=== PATIENT | female | born 1990 ===

== ENCOUNTER 2021-02-20 07:43 | Inpatient (IN) | payer MEDICAID ==
[2021-02-20] MEDS ORDERED: Water For Irrigation,Sterile 1,000 ML Container IRR PRN (09:41)
[2021-02-20] MEDS ORDERED: Ampicillin 2 GM in Sodium Chloride 0.9% 100 ML IV ONE (09:41)
[2021-02-20] MEDS ORDERED: Lidocaine 1% 50 ML MDV INJECT PRN (09:41)
[2021-02-20] MEDS ORDERED: Tranexamic Acid 1,000 MG in Sodium Chloride 0.9% 100 ML IV PRN (09:41)
[2021-02-20] MEDS ORDERED: Sodium Chloride 0.9% 2.5 ML Syringe FLUSH PRN (09:41)
[2021-02-20] MEDS ORDERED: Butorphanol 1 MG/ML SDV IVPUSH PRN (09:41)
[2021-02-20] MEDS ORDERED: Misoprostol 200 MCG Tab PO PRN (09:41)
[2021-02-20] MEDS ORDERED: Sodium Chloride 0.9% 10 ML Syringe FLUSH PRN (09:41)
[2021-02-20] MEDS ORDERED: Nalbuphine 10 MG/1 ML Vial IVPUSH PRN (09:41)
[2021-02-20] MEDS ORDERED: Carboprost Tromethamine 250 MCG/1 ML Amp IM PRN (09:41)
[2021-02-20] MEDS ORDERED: Sodium Chloride 0.9% 10 ML SDV IV PRN (09:41)
[2021-02-20] MEDS ORDERED: Methylergonovine 0.2 MG/1 ML Amp IM PRN (09:41)
[2021-02-20] MEDS ORDERED: Oxytocin/0.9 % Sodium Chloride 30 UNIT/500 ML BAG IV SCH ×2 (09:45→13:30)
[2021-02-20] MEDS ORDERED: Sodium Chloride 0.9% 100 ML ONE (10:09)
[2021-02-20] MEDS: Lactated Ringers 1,000 ML IV SCH ×3 (10:19→17:14)
[2021-02-20] MEDS ORDERED: Terbutaline 1 MG/ML SDV SUBCUT PRN (13:16)
[2021-02-20] MEDS: Ampicillin 1 GM in Sodium Chloride 0.9% 50 ML IV SCH ×2 (14:15→18:07)
[2021-02-20] MEDS ORDERED: fentaNYL 100 MCG/2 ML SDV ONE (15:56)
[2021-02-20] MEDS ORDERED: Ropivacaine HCl/PF 100 ML ONE (15:56)
--- NOTE | 2021-02-20 16:17 | PCM.PREANE ---
Preanesthetic Assessment - Anesthesia/Transfusion/Family Hx Anesthesia History: Prior Anesthesia Without Reaction Family History of Anesthesia Reaction: No Transfusion History: No Prior Transfusion(s) - Physical Assessment NPO Status Date: 02/20/21 NPO Status Time: 12:00 Height: 1.57 m Weight: 68.492 kg ASA Class: 2 - Lab Values: Laboratory Last Values WBC 11.36 K/uL (4.0-11.0) H 02/20/21 10:06 RBC 4.05 M/uL (4.30-5.90) L 02/20/21 10:06 Hgb 11.8 g/dL (12.0-16.0) L 02/20/21 10:06 Hct 35.8 % (36.0-46.0) L 02/20/21 10:06 MCV 88.4 fL (80.0-98.0) 02/20/21 10:06 MCH 29.1 pg (27.0-32.0) 02/20/21 10:06 MCHC 33.0 g/dL (31.0-37.0) 02/20/21 10:06 RDW Std Deviation 42.6 fl (28.0-62.0) 02/20/21 10:06 RDW Coeff of Katina 14 % (11.0-15.0) 02/20/21 10:06 Plt Count 190 K/uL (150-400) 02/20/21 10:06 MPV 10.40 fL (7.40-12.00) 02/20/21 10:06 Membrane Rupture POSITIVE 02/20/21 08:30 SARS-CoV-2 RNA (OLLIE) NEGATIVE (NEGATIVE) 02/20/21 10:22 Blood Type O POSITIVE 02/20/21 10:11 Antibody Screen NEGATIVE 02/20/21 10:11 - Allergies Allergies/Adverse Reactions: Allergies Allergy/AdvReac Type Severity Reaction Status Date / Time No Known Allergies Allergy Verified 02/20/21 08:49 - Acknowledgements Anesthesia Type Planned: Spinal Pt an Appropriate Candidate for the Planned Anesthesia: Yes Alternatives and Risks of Anesthesia Discussed w Pt/Guardian: Yes Pt/Guardian Understands and Agrees with Anesthesia Plan: Yes PreAnesthesia Questionnaire Genitourinary History: Reports: None 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: Polycystic 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 - Infectious Disease History Infectious Disease History: Reports: Chicken Pox - Past Surgical History Female Surgical History: Reports: D&C - SUBSTANCE USE Tobacco Use Status *Q: Never Tobacco User Second Hand Smoke Exposure: No Recreational Drug Use History: No - HOME MEDS Home Medications: Home Meds Vit #76/Iron,Carb/Fa [Pnv 29-1 Tablet] 1 tab PO DAILY 02/20/21 [History] - CURRENT (IN HOUSE) MEDS Current Meds: Current Medications Butorphanol Tartrate (Butorphanol 1 Mg/Ml Sdv) 1 mg IVPUSH Q1H PRN PRN Reason: Pain Carboprost Tromethamine (Carboprost Tromethamine 250 Mcg/1 Ml Amp) 250 mcg IM ASDIRECTED PRN PRN Reason: Post Hemorrhage Lactated Ringer's (Ringers, Lactated) 1,000 mls @ 150 mls/hr IV ASDIRECTED SADAF Last Infusion: 02/20/21 14:10 Dose: 150 mls/hr Documented by: Oxytocin/Sodium Chloride (Oxytocin 30 Unit/500 Ml-Ns) 30 unit in 500 mls @ 500 mls/hr IV TITRATE SADAF Tranexamic Acid 1,000 mg/ (Sodium Chloride) 110 mls @ 660 mls/hr IV ONETIME PRN PRN Reason: Bleeding Ampicillin Sodium 1 gm/ Sodium (Chloride) 50 mls @ 100 mls/hr IV Q4H SADAF Last Admin: 02/20/21 14:15 Dose: 100 mls/hr Documented by: Oxytocin/Sodium Chloride (Oxytocin 30 Unit/500 Ml-Ns) 30 unit in 500 mls @ 2 mls/hr IV TITRATE SADAF; Protocol Last Titration: 02/20/21 15:45 Dose: 2 munits/min, 2 mls/hr Documented by: Lidocaine HCl (Lidocaine 1% 50 Ml Mdv) 50 ml INJECT ONETIME PRN PRN Reason: Laceration repair Methylergonovine Maleate (Methylergonovine 0.2 Mg/1 Ml Amp) 0.2 mg IM ASDIRECTED PRN PRN Reason: Post Hemorrhage Misoprostol (Misoprostol 200 Mcg Tab) 200 mcg PO ONETIME PRN PRN Reason: Post Hemorrhage Nalbuphine HCl (Nalbuphine 10 Mg/1 Ml Vial) 10 mg IVPUSH Q1H PRN PRN Reason: Pain (severe 7-10) Sodium Chloride (Sodium Chloride 0.9% 10 Ml Syringe) 10 ml FLUSH ASDIRECTED PRN PRN Reason: Keep Vein Open Sodium Chloride (Sodium Chloride 0.9% 2.5 Ml Syringe) 2.5 ml FLUSH ASDIRECTED PRN PRN Reason: Keep Vein Open Sodium Chloride (Sodium Chloride 0.9% 10 Ml Sdv) 10 ml IV ASDIRECTED PRN PRN Reason: IV Use Sterile Water (Water For Irrigation,Sterile 1,000 Ml Container) 1,000 ml IRR ASDIRECTED PRN PRN Reason: delivery Terbutaline Sulfate (Terbutaline 1 Mg/Ml Sdv) 0.25 mg SUBCUT ASDIRECTED PRN PRN Reason: Tacysystole Discontinued Medications Fentanyl (Fentanyl 100 Mcg/2 Ml Sdv) Confirm Administered Dose 100 mcg .ROUTE .STK-MED ONE Stop: 02/20/21 15:57 Ampicillin Sodium 2 gm/ Sodium (Chloride) 100 mls @ 200 mls/hr IV ONETIME ONE Stop: 02/20/21 10:10 Last Admin: 02/20/21 10:19 Dose: 200 mls/hr Documented by: Sodium Chloride (Normal Saline) Confirm Administered Dose 100 mls @ as directed .ROUTE .STK-MED ONE Stop: 02/20/21 10:10 Ropivacaine (Naropin 0.2%) Confirm Administered Dose 100 mls @ as directed .ROUTE .STK-MED ONE Stop: 02/20/21 15:57
--- NOTE | 2021-02-20 16:20 | PCM.PRNOTE ---
- Free Text/Narrative Note: Anes Note Patietn requests epidural for L&D. Sitting position, Level L3-L3 midline approach. Sterile technique. Chlorapep scrub to lumbar area. Sterile fenestrated drape applied. Epidural space easily achieved single attempt with ease using SHAINA technique. SHAINA at 3 cm. Cath threaded 5 cm with ease. Cath secured a t skin using sterile clear adhesive dressing. Test 1604 3 cc 1.5% lido with epi negative. 1707 Load 10 cc 0.2% ropiviciane with 1 mcg cc fentanyl added, in slow divided doses. 1712 Pump started with 90 cc same solution. Rate is 8 cc hr with 6 cc q 20 min prn bolus. Tonya well. Time with patient [id number] Homero Luz CRNA
[2021-02-20] MEDS ORDERED: Phenylephrine/Normal Saline 100 MCG/ML 10 ML Syringe IVPUSH PRN (16:24)
[2021-02-20] MEDS ORDERED: ePHEDrine 50 MG/ML SDV IVPUSH PRN (16:24)
[2021-02-20] MEDS ORDERED: Phenylephrine 1% 10 MG/ML SDV ONE (16:30)
[2021-02-20] MEDS ORDERED: Bisacodyl 10 MG Supp RECTAL PRN (19:14)
[2021-02-20] MEDS ORDERED: Benzocaine/Menthol 20%-0.5% Spray 78 GM Cannister TOP PRN (19:14)
[2021-02-20] MEDS ORDERED: Witch Hazel Medicated Pads 40/Jar TOP PRN (19:14)
[2021-02-20] MEDS ORDERED: Lanolin 100% Cream 7 GM Tube TOP PRN (19:14)
[2021-02-20] MEDS ORDERED: oxyCODONE 5 MG Tab PO PRN (19:14)
[2021-02-20] MEDS ORDERED: Acetaminophen 500 MG Tab PO PRN (19:14)
[2021-02-20] MEDS ORDERED: Ibuprofen 400 MG Tab PO PRN (19:14)
[2021-02-20] MEDS ORDERED: Docusate Sodium 100 MG Cap PO PRN (19:14)
--- NOTE | 2021-02-20 19:22 | PCM.OPNOTE ---
- General Post-Op/Procedure Note Date of Surgery/Procedure: 02/20/21 Operative Procedure(s): /2nd MLL-repaired Findings: Viable male APGARs 8, 8 weight 3310 gm. Spontaneous delivery intact placenta with 3V cord. Pre Op Diagnosis: 40 week IUP. Labor/SROM. GBBS + Post-Op Diagnosis: Same Anesthesia Technique: Epidural Primary Surgeon: Marcia Yung EBL in mLs: 300 Complications: none known Condition: Good Free Text/Narrative:: Dictation [id number]
--- NOTE | 2021-02-20 20:33 | OR ---
SURGEON: Marcia Yung M.D. DATE OF PROCEDURE: 02/20/2021 PREOPERATIVE DIAGNOSES: 1. 40-week intrauterine . 2. Active labor with spontaneous rupture of membrane. 3. Group B Streptococcus positive. POSTOPERATIVE DIAGNOSES: 1. 40-week intrauterine . 2. Active labor with spontaneous rupture of membrane. 3. Group B Streptococcus positive. PROCEDURE: Spontaneous vaginal delivery, second-degree midline laceration repair, and left labial laceration, first-degree, repaired. PRIMARY SURGEON: Marcia Yung M.D. ANESTHESIA: Epidural. ESTIMATED BLOOD LOS,S: 300 mL. COMPLICATIONS: None known. FINDINGS: Viable male. score of 8 at one minute, 8 at five minutes. Weight 3310 g. Spontaneous delivery, intact placenta, 3-vessel cord. DISPOSITION: Infant to nursery, mom in LDRP. DESCRIPTION OF PROCEDURE: Hollie is a 31-year-old, G2, P1, at 40 weeks' gestation, who presented on the morning of 02/20/2021 with contractions approximately every 4 to 6 minutes apart. On initial examination, category 1 heart tones were noted. Cervix was 3 cm, 80% effaced, -4 station. It was noted that there was probably fluid within the vault. AmniSure was performed and was positive. Upon further questioning of the patient, she stated that maybe she had started leaking fluid between 5 and 6 a.m. that morning. She is group B strep positive in urine. The patient was admitted, routine labs were drawn. Initiated ampicillin prophylaxis. The patient was only mellissa approximately every 6 to 8 minutes and had made no cervical change. Therefore, she was initiated on Pitocin augmentation. The patient progressed nicely through the afternoon hours, underwent regional anesthesia shortly after 4 p.m. This was a fairly high epidural and to the T2 level. Therefore, the epidural was discontinued. The patient remained comfortable. Shortly after 5:30 p.m., she was found to be 6 cm, and within the next 40 minutes, progressed to complete, 100% effaced, +3 station. However, she was still not feeling any sensation to push. Continued labor at 6:30. The patient was more easily able to move her upper extremities. The patient was placed in modified dorsal lithotomy position, prepped and draped in the usual aseptic manner, began pushing efforts, pushed effectively, was able to deliver infant's head atraumatically spontaneously, followed by anterior shoulder, posterior shoulder, and remainder of the body without difficulty. The infant's oropharynx and nares were bulb suctioned. was handed off to his mother with attending nursing staff at her side. After a delay, cord was clamped x2 and cut. Cord arterial, cord venous, cord blood sampling was obtained. Light pressure was applied while placenta was delivered spontaneously intact. Vigorous fundal uterine massage was then applied while 30 units of Pitocin was delivered in 500 mL of IV fluid. Upon inspection of cervix, vaginal sidewall, and perineum, there was found to be a second-degree midline laceration and a first-degree left labial laceration, repaired using 3-0 Vicryl in the usual fashion. Hemostasis appeared evident. Sponge, instrument, and needle count was correct. Hemostasis evident. Uterus remained firm. The patient remained in LDRP, infant to nursery. ARABELLA / MARTINEZ /[id number]
[2021-02-20] MEDS: Ibuprofen 800 MG Tab PO PRN (20:52)
[2021-02-20] MEDS: Acetaminophen 500 MG Tab PO PRN (20:53)
[2021-02-21] MEDS: Acetaminophen 500 MG Tab PO PRN ×2 (00:39→04:07)
[2021-02-21] MEDS: Lactated Ringers 1,000 ML IV SCH (05:24)
--- NOTE | 2021-02-21 06:11 | PCM.PRNOTE ---
- Free Text/Narrative Note: Anes Note Patient reports symptoms of post dural puncture headache. During epidural procedure on February 20, there was no sign of wet tap. The epiidural space was easily achived single attempt at 3 cm, and cath was threaded easily and atraumatically to a depth of 5 cm. The aspiration through epidural cathter was negative. The test dose was negative. The loading dose was uneventful. The pump was started without incident. However, an hour after pump was started the patient experienced unusally high epidural blockade into the thoracic dermatomes. At that time the pump was topped, and the epidural pump was stopped and te patient delivered uneventfully. Will observe for continued headache and plan epidural blood patch on February 21 if needed. Homero Luz ROCKET ENGINE COMPONENT MECHANIC
--- NOTE | 2021-02-21 06:17 | PCM.PRNOTE ---
- Free Text/Narrative Note: Anes Note. Patient continues to report post dural puncture headache. Specifically, she reports headache upon arising to bathroom. And this headache completely resolves when she lies flat in bed. A consent for epidural blood patch was obtained. 0540 Patient placed in sitting position. Chloraprep scrub to lumbar area. Steril fenestrated drape applied. The prior site of epidural placement was identified. A new site was elected 1 level above prior level. A sterile fenestrated drape was applied. Area was localized with 3 cc 1 % lidocaine. The epidural space was easily achieved at 2.5cm depth using SHAINA technique. At this time, a director of cath lab diana fresh bllod from right antecubital vein. A total of 12 cc blood was slowly and cautiously injected into the epidural space. Patient reports mild pressure during injection, but no pain radiating down leg. A band aid was placed at site, and patient immediately placed flat for 40 mintes with pillow under knees. Tolerated well. Time with patient [id number] Homero Luz CRNA
--- NOTE | 2021-02-21 06:50 | PCM.PRNOTE ---
- Free Text/Narrative Note: Anes Note Patient placed in upright position. Patient reports relief of headache. I have instructed her to remain primarily in bed today, with bathroom privileges. Time with patient [phone] Homero Luz AUDIT REVIEWER
[2021-02-21] MEDS: Ibuprofen 800 MG Tab PO PRN (08:10)
--- NOTE | 2021-02-21 08:31 | PCM.PNPP ---
- General Info Date of Service: 02/21/21 Subjective Update: Patient resting comfortably in bed during rounds. Pain well controlled. Ambulating and voiding without difficulty. Lochia decreasing. Tolerating regular diet. will attempt to pump today. - General Info Date of Service: 02/21/21 - Patient Data Vital Signs - Most Recent: Last Vital Signs Temp 97.1 F 02/21/21 08:04 Pulse 65 02/21/21 08:04 Resp 16 02/21/21 08:04 BP 122/72 02/21/21 08:04 Pulse Ox 100 02/21/21 08:04 Weight - Most Recent: 151 lb Lab Results - Last 24 Hours: Laboratory Results - last 24 hr 02/20/21 02/20/21 02/20/21 Range/Units 08:30 10:06 10:11 WBC 11.36 H (4.0-11.0) K/uL RBC 4.05 L (4.30-5.90) M/uL Hgb 11.8 L (12.0-16.0) g/dL Hct 35.8 L (36.0-46.0) % MCV 88.4 (80.0-98.0) fL MCH 29.1 (27.0-32.0) pg MCHC 33.0 (31.0-37.0) g/dL RDW Std Deviation 42.6 (28.0-62.0) fl RDW Coeff of Katina 14 (11.0-15.0) % Plt Count 190 (150-400) K/uL MPV 10.40 (7.40-12.00) fL Cord ABG pH (7.18-7.38) Cord ABG Base Excess (-10--2) Cord VBG pH (7.25-7.45) Cord VBG Base Excess (-10--2) Membrane Rupture POSITIVE SARS-CoV-2 RNA (OLLIE) (NEGATIVE) Blood Type O POSITIVE Antibody Screen NEGATIVE 02/20/21 02/20/21 02/21/21 Range/Units 10:22 18:49 05:28 WBC (4.0-11.0) K/uL RBC (4.30-5.90) M/uL Hgb 10.9 L (12.0-16.0) g/dL Hct 33.4 L (36.0-46.0) % MCV (80.0-98.0) fL MCH (27.0-32.0) pg MCHC (31.0-37.0) g/dL RDW Std Deviation (28.0-62.0) fl RDW Coeff of Katina (11.0-15.0) % Plt Count (150-400) K/uL MPV (7.40-12.00) fL Cord ABG pH 7.342 (7.18-7.38) Cord ABG Base Excess 0 H (-10--2) Cord VBG pH 7.341 (7.25-7.45) Cord VBG Base Excess -3 (-10--2) Membrane Rupture SARS-CoV-2 RNA (OLLIE) NEGATIVE (NEGATIVE) Blood Type Antibody Screen Med Orders - Current: Current Medications Acetaminophen (Acetaminophen 500 Mg Tab) 500 mg PO Q4H PRN PRN Reason: Pain Acetaminophen (Acetaminophen 500 Mg Tab) 1,000 mg PO Q4H PRN PRN Reason: Pain Last Admin: 02/21/21 04:07 Dose: 1,000 mg Documented by: Benzocaine/Menthol (Benzocaine/Menthol 20%-0.5% [place] 78 Gm Cannister) 78 gm TOP ASDIRECTED PRN PRN Reason: Perineal Comfort Measure Last Admin: 02/20/21 20:51 Dose: 78 gm Documented by: Bisacodyl (Bisacodyl 10 Mg Supp) 10 mg RECTAL ONETIME PRN PRN Reason: Constipation Docusate Sodium (Docusate Sodium 100 Mg Cap) 100 mg PO BID PRN PRN Reason: Constipation Last Admin: 02/20/21 20:53 Dose: 100 mg Documented by: Emollient Ointment (Lanolin 100% Cream 7 Gm Tube) 0 gm TOP ASDIRECTED PRN PRN Reason: Sore Nipples Last Admin: 02/20/21 20:54 Dose: 7 gm Documented by: Ephedrine Sulfate (Ephedrine 50 Mg/Ml Sdv) 10 mg IVPUSH Q5M PRN PRN Reason: Hypotension Lactated Ringer's (Ringers, Lactated) 1,000 mls @ 150 mls/hr IV ASDIRECTED SADAF Last Admin: 02/21/21 05:24 Dose: 999 mls/hr Documented by: Tranexamic Acid 1,000 mg/ (Sodium Chloride) 110 mls @ 660 mls/hr IV ONETIME PRN PRN Reason: Bleeding Oxytocin/Sodium Chloride (Oxytocin 30 Unit/500 Ml-Ns) 30 unit in 500 mls @ 2 mls/hr IV TITRATE SADAF; Protocol Last Titration: 02/20/21 16:16 Dose: 4 munits/min, 4 mls/hr Documented by: Ibuprofen (Ibuprofen 400 Mg Tab) 400 mg PO Q4H PRN PRN Reason: Pain Ibuprofen (Ibuprofen 800 Mg Tab) 800 mg PO Q6H PRN PRN Reason: Pain Last Admin: 02/21/21 08:10 Dose: 800 mg Documented by: Methylergonovine Maleate (Methylergonovine 0.2 Mg/1 Ml Amp) 0.2 mg IM ASDIRECTED PRN PRN Reason: Post Hemorrhage Oxycodone HCl (Oxycodone 5 Mg Tab) 5 mg PO Q2H PRN PRN Reason: Pain Last Admin: 02/21/21 06:48 Dose: 5 mg Documented by: Phenylephrine HCl (Phenylephrine/Normal Saline 100 Mcg/Ml 10 Ml Syringe) 0.1 mg IVPUSH Q5M PRN PRN Reason: Hypotension Sodium Chloride (Sodium Chloride 0.9% 10 Ml Syringe) 10 ml FLUSH ASDIRECTED PRN PRN Reason: Keep Vein Open Sodium Chloride (Sodium Chloride 0.9% 2.5 Ml Syringe) 2.5 ml FLUSH ASDIRECTED PRN PRN Reason: Keep Vein Open Sodium Chloride (Sodium Chloride 0.9% 10 Ml Sdv) 10 ml IV ASDIRECTED PRN PRN Reason: IV Use Sterile Water (Water For Irrigation,Sterile 1,000 Ml Container) 1,000 ml IRR ASDIRECTED PRN PRN Reason: delivery Witch Crystal (Witch Crystal Medicated Pads 40/Jar) 1 pad TOP ASDIRECTED PRN PRN Reason: comfort care Last Admin: 02/20/21 20:52 Dose: 1 pad Documented by: Discontinued Medications Butorphanol Tartrate (Butorphanol 1 Mg/Ml Sdv) 1 mg IVPUSH Q1H PRN PRN Reason: Pain Carboprost Tromethamine (Carboprost Tromethamine 250 Mcg/1 Ml Amp) 250 mcg IM ASDIRECTED PRN PRN Reason: Post Hemorrhage Fentanyl (Fentanyl 100 Mcg/2 Ml Sdv) Confirm Administered Dose 100 mcg .ROUTE .STK-MED ONE Stop: 02/20/21 15:57 Oxytocin/Sodium Chloride (Oxytocin 30 Unit/500 Ml-Ns) 30 unit in 500 mls @ 500 mls/hr IV TITRATE SADAF Ampicillin Sodium 2 gm/ Sodium (Chloride) 100 mls @ 200 mls/hr IV ONETIME ONE Stop: 02/20/21 10:10 Last Admin: 02/20/21 10:19 Dose: 200 mls/hr Documented by: Sodium Chloride (Normal Saline) Confirm Administered Dose 100 mls @ as directed .ROUTE .STK-MED ONE Stop: 02/20/21 10:10 Ampicillin Sodium 1 gm/ Sodium (Chloride) 50 mls @ 100 mls/hr IV Q4H [facility] Last Admin: 02/20/21 18:07 Dose: 100 mls/hr Documented by: Ropivacaine (Naropin 0.2%) Confirm Administered Dose 100 mls @ as directed .ROUTE .STK-MED ONE Stop: 02/20/21 15:57 Lidocaine HCl (Lidocaine 1% 50 Ml Mdv) 50 ml INJECT ONETIME PRN PRN Reason: Laceration repair Misoprostol (Misoprostol 200 Mcg Tab) 200 mcg PO ONETIME PRN PRN Reason: Post Hemorrhage Nalbuphine HCl (Nalbuphine 10 Mg/1 Ml Vial) 10 mg IVPUSH Q1H PRN PRN Reason: Pain (severe 7-10) Phenylephrine HCl (Phenylephrine 1% 10 Mg/Ml Sdv) Confirm Administered Dose 10 mg .ROUTE .STK-MED ONE Stop: 02/20/21 16:31 Terbutaline Sulfate (Terbutaline 1 Mg/Ml Sdv) 0.25 mg SUBCUT ASDIRECTED PRN PRN Reason: Tacysystole - Infant Interaction Infant Disposition, : to Nursery Infant Feeding: Attempted ; Nursed Fair/Poor Support Person: Significant Other - Recovery Exam Fundal Tone: Firm Fundal Level: 2 Fingerbreadths Below Umbilicus Fundal Placement: Midline Lochia Amount: Small Lochia Color: Rubra/Red Bladder Status: Voiding Urinary Elimination: Voided - Exam General: Alert Lungs: Normal Respiratory Effort Cardiovascular: Regular Rate GI/Abdominal Exam: Soft, Tender (appropriate) Extremities: Normal Range of Motion, Non-Tender, Pedal Edema (1+) Skin: Warm, Dry, Intact Neurological: No New Focal Deficit Psy/Mental Status: Normal Mood - Problem List Review Problem List Initiated/Reviewed/Updated: Yes - Assessment Assessment:: 31 year old G2 now P2 PPD 1 s/p - Plan Plan:: Routing cares * Rh positive, rubella immune * GBS positive with SROM prior to admission. Received IV Ampicillin x3 during labor. * PO pain medications PRN * Encourage ambulation and fluid intake today * Regular diet as tolerated * Plans to take her to Dr. La for pediatric care * Reviewed options for contraception, desires minipill with breast feeding. * Will use breast pump with nursing assistance today. Dispo: stable. Anticipate discharge tomorrow due to GBS positive status. Continue cares today.
[2021-02-22] MEDS: Acetaminophen 500 MG Tab PO PRN (02:02)
--- NOTE | 2021-02-22 09:00 | PCM.PNPP ---
- General Info Date of Service: 02/22/21 Admission Dx/Problem (Free Text): Subjective Update: Patient resting comfortably in bed during rounds. Pain well controlled. Ambulating and voiding without difficulty. Lochia decreasing. Tolerating regular diet. and pumping. Reports new onset rash on her upper, inner bilateral thighs. Has stopped using pelvic wash and sprays. - General Info Date of Service: 02/22/21 - Patient Data Vital Signs - Most Recent: Last Vital Signs Temp 97.6 F 02/22/21 04:53 Pulse 87 02/22/21 04:53 Resp 18 02/22/21 04:53 BP 126/78 02/22/21 04:53 Pulse Ox 97 02/22/21 04:53 Weight - Most Recent: 151 lb Med Orders - Current: Current Medications Acetaminophen (Acetaminophen 500 Mg Tab) 500 mg PO Q4H PRN PRN Reason: Pain Acetaminophen (Acetaminophen 500 Mg Tab) 1,000 mg PO Q4H PRN PRN Reason: Pain Last Admin: 02/22/21 02:02 Dose: 1,000 mg Documented by: Benzocaine/Menthol (Benzocaine/Menthol 20%-0.5% [place] 78 Gm Cannister) 78 gm TOP ASDIRECTED PRN PRN Reason: Perineal Comfort Measure Last Admin: 02/20/21 20:51 Dose: 78 gm Documented by: Bisacodyl (Bisacodyl 10 Mg Supp) 10 mg RECTAL ONETIME PRN PRN Reason: Constipation Docusate Sodium (Docusate Sodium 100 Mg Cap) 100 mg PO BID PRN PRN Reason: Constipation Last Admin: 02/20/21 20:53 Dose: 100 mg Documented by: Emollient Ointment (Lanolin 100% Cream 7 Gm Tube) 0 gm TOP ASDIRECTED PRN PRN Reason: Sore Nipples Last Admin: 02/20/21 20:54 Dose: 7 gm Documented by: Ephedrine Sulfate (Ephedrine 50 Mg/Ml Sdv) 10 mg IVPUSH Q5M PRN PRN Reason: Hypotension Lactated Ringer's (Ringers, Lactated) 1,000 mls @ 150 mls/hr IV ASDIRECTED SADAF Last Admin: 02/21/21 05:24 Dose: 999 mls/hr Documented by: Tranexamic Acid 1,000 mg/ (Sodium Chloride) 110 mls @ 660 mls/hr IV ONETIME PRN PRN Reason: Bleeding Oxytocin/Sodium Chloride (Oxytocin 30 Unit/500 Ml-Ns) 30 unit in 500 mls @ 2 mls/hr IV TITRATE SADAF; Protocol Last Titration: 02/21/21 09:05 Dose: 999 munits/min, 999 mls/hr Documented by: Ibuprofen (Ibuprofen 400 Mg Tab) 400 mg PO Q4H PRN PRN Reason: Pain Ibuprofen (Ibuprofen 800 Mg Tab) 800 mg PO Q6H PRN PRN Reason: Pain Last Admin: 02/21/21 08:10 Dose: 800 mg Documented by: Methylergonovine Maleate (Methylergonovine 0.2 Mg/1 Ml Amp) 0.2 mg IM ASDIRECTED PRN PRN Reason: Post Hemorrhage Oxycodone HCl (Oxycodone 5 Mg Tab) 5 mg PO Q2H PRN PRN Reason: Pain Last Admin: 02/21/21 06:48 Dose: 5 mg Documented by: Phenylephrine HCl (Phenylephrine/Normal Saline 100 Mcg/Ml 10 Ml Syringe) 0.1 mg IVPUSH Q5M PRN PRN Reason: Hypotension Sodium Chloride (Sodium Chloride 0.9% 10 Ml Syringe) 10 ml FLUSH ASDIRECTED PRN PRN Reason: Keep Vein Open Sodium Chloride (Sodium Chloride 0.9% 2.5 Ml Syringe) 2.5 ml FLUSH ASDIRECTED PRN PRN Reason: Keep Vein Open Sodium Chloride (Sodium Chloride 0.9% 10 Ml Sdv) 10 ml IV ASDIRECTED PRN PRN Reason: IV Use Sterile Water (Water For Irrigation,Sterile 1,000 Ml Container) 1,000 ml IRR ASDIRECTED PRN PRN Reason: delivery Witch Crystal (Witch Crystal Medicated Pads 40/Jar) 1 pad TOP ASDIRECTED PRN PRN Reason: comfort care Last Admin: 02/20/21 20:52 Dose: 1 pad Documented by: Discontinued Medications Butorphanol Tartrate (Butorphanol 1 Mg/Ml Sdv) 1 mg IVPUSH Q1H PRN PRN Reason: Pain Carboprost Tromethamine (Carboprost Tromethamine 250 Mcg/1 Ml Amp) 250 mcg IM ASDIRECTED PRN PRN Reason: Post Hemorrhage Fentanyl (Fentanyl 100 Mcg/2 Ml Sdv) Confirm Administered Dose 100 mcg .ROUTE .STK-MED ONE Stop: 02/20/21 15:57 Last Admin: 02/21/21 20:59 Dose: Not Given Documented by: Oxytocin/Sodium Chloride (Oxytocin 30 Unit/500 Ml-Ns) 30 unit in 500 mls @ 500 mls/hr IV TITRATE SADAF Ampicillin Sodium 2 gm/ Sodium (Chloride) 100 mls @ 200 mls/hr IV ONETIME ONE Stop: 02/20/21 10:10 Last Admin: 02/20/21 10:19 Dose: 200 mls/hr Documented by: Sodium Chloride (Normal Saline) Confirm Administered Dose 100 mls @ as directed .ROUTE .STK-MED ONE Stop: 02/20/21 10:10 Last Admin: 02/21/21 20:59 Dose: Not Given Documented by: Ampicillin Sodium 1 gm/ Sodium (Chloride) 50 mls @ 100 mls/hr IV Q4H [facility] Last Admin: 02/20/21 18:07 Dose: 100 mls/hr Documented by: Ropivacaine (Naropin 0.2%) Confirm Administered Dose 100 mls @ as directed .ROUTE .STK-MED ONE Stop: 02/20/21 15:57 Last Admin: 02/21/21 20:59 Dose: Not Given Documented by: Lidocaine HCl (Lidocaine 1% 50 Ml Mdv) 50 ml INJECT ONETIME PRN PRN Reason: Laceration repair Misoprostol (Misoprostol 200 Mcg Tab) 200 mcg PO ONETIME PRN PRN Reason: Post Hemorrhage Nalbuphine HCl (Nalbuphine 10 Mg/1 Ml Vial) 10 mg IVPUSH Q1H PRN PRN Reason: Pain (severe 7-10) Phenylephrine HCl (Phenylephrine 1% 10 Mg/Ml Sdv) Confirm Administered Dose 10 mg .ROUTE .STK-MED ONE Stop: 02/20/21 16:31 Terbutaline Sulfate (Terbutaline 1 Mg/Ml Sdv) 0.25 mg SUBCUT ASDIRECTED PRN PRN Reason: Tacysystole - Infant Interaction Disposition, : [place] to Nursery Feeding: Attempted ; Nursed Fair/Poor Support Person: Significant Other - Recovery Exam Fundal Tone: Firm Fundal Level: 1 Fingerbreadths Below Umbilicus Fundal Placement: Midline Lochia Amount: Scant Lochia Color: Rubra/Red Perineum Description: Other (see below) Other Perinuem Description: 2nd degree laceration with repair. Episiotomy/Laceration: Approximated Bladder Status: Voiding Urinary Elimination: Voided - Exam General: Alert Lungs: Normal Respiratory Effort Cardiovascular: Regular Rate GI/Abdominal Exam: Soft, Non-Tender Extremities: Normal Range of Motion, Non-Tender, Pedal Edema (trace) Skin: Warm, Dry, Intact, Rash (maculopapular rash to the upper inner bilateral thighs) Wound/Incisions: Healing Well Neurological: No New Focal Deficit Psy/Mental Status: Normal Mood - Problem List Review Problem List Initiated/Reviewed/Updated: Yes - Assessment Assessment:: 31 year old G2 now P2 PPD 2 s/p - Plan Plan:: Routing cares * Rh positive, rubella immune * GBS positive with SROM prior to admission. Received IV Ampicillin x3 during labor. * PO pain medications PRN * Encourage ambulation and fluid intake today * Regular diet as tolerated * Plans to take her to Dr. La for pediatric care * Reviewed options for contraception, desires minipill with breast feeding. * Will use breast pump with nursing assistance today. * Rash- recommended discontinuing pelvic wash and spray. May use ice to the area and Benadryl cream/PO as needed. Dispo: stable. Anticipate discharge today pending maternal status. Discharge precautions reviewed including fever/chills, intractable nausea/vomiting, pain not controlled by PO medications, heavy vaginal bleeding with soaking two pads an hour for more than one hour.
--- NOTE | 2021-02-22 09:26 | PCM48HPAN ---
Post Anesthesia Note - EVALUATION WITHIN 48HRS OF ANESTHETIC Vital Signs in Normal Range: Yes Patient Participated in Evaluation: Yes Respiratory Function Stable: Yes Airway Patent: Yes Cardiovascular Function Stable: Yes Hydration Status Stable: Yes Pain Control Satisfactory: Yes Nausea and Vomiting Control Satisfactory: Yes Mental Status Recovered: Yes Vital Signs: Last Vital Signs Temp 36.4 C 02/22/21 08:00 Pulse 75 02/22/21 08:00 Resp 16 02/22/21 08:00 BP 143/80 H 02/22/21 08:00 Pulse Ox 98 02/22/21 08:00
[2021-02-22] MEDS ORDERED: diphenhydrAMINE/Zinc Acetate 1% Crm 28.3 GM Tube TOP PRN (09:36)
[2021-02-22] MEDS ORDERED: diphenhydrAMINE 25 MG Cap PO PRN (09:36)
== END 2021-02-22 16:25 | disposition home or self-care (01) | DRG 807 ==
LOC: MW.OBCHECK 07:43 → MW.OB 07:46 → MW.OBCHECK 09:40 → MW.OB 09:41 → OBSVTOIN 18:49 → MW.OB 22:30
PROVIDERS: ADMIT Obstetrics & Gynecology; ATTEND Obstetrics & Gynecology
PROC: 10E0XZZ Delivery of Products of Conception, External Approach (ICD-10-PCS; principal; 2021-02-20)
PROC: 0KQM0ZZ Repair Perineum Muscle, Open Approach (ICD-10-PCS; 2021-02-20)
PROC: 3E0R3BZ Introduction of Anesthetic Agent into Spinal Canal, Percutaneous Approach (ICD-10-PCS; 2021-02-20)
PROC: 00HU33Z Insertion of Infusion Device into Spinal Canal, Percutaneous Approach (ICD-10-PCS; 2021-02-20)
PROC: 00PUX3Z Removal of Infusion Device from Spinal Canal, External Approach (ICD-10-PCS; 2021-02-20)
PROC: 3E0R3GC Introduction of Other Therapeutic Substance into Spinal Canal, Percutaneous Approach (ICD-10-PCS; 2021-02-21)
DX: O48.0 Post-term pregnancy (principal); Z37.0 Single live birth; Z3A.40 40 weeks gestation of pregnancy; O99.824 Streptococcus B carrier state complicating childbirth; O70.1 Second degree perineal laceration during delivery; G97.1 Other reaction to spinal and lumbar puncture; Z20.822 Contact with and (suspected) exposure to COVID-19
CPT/HCPCS: 01967; 36415; 51702; 59025; 59409; 62273; 82803; 84112; 85014; 85018; 85027; 86592; 86850; 86900; 86901; A9270-GY; J0290; J2370; J2590; J2795; J3010; J7120; U0002